=== PATIENT | female | born 1975 | race Caucasian/White ===

== ENCOUNTER 2022-01-08 09:03 | Observation (INO) | payer OTHER ==
[~2022-01-08] VITALS: Ht 170.2 cm; Wt 134.0 kg
[~2022-01-08 09:03] MED LIST: AMLODIPINE BESYL5 MG PO; DEPAKOTE ER500 MG PO; DEXAMETHASONE SOD PHOS INJ 4 MG/ML SDV ONE; FAMOTIDINE40 MG PO; FEROSUL325 MG PO; GEODON20 MG PO; GLYCOPYRROLATE INJ 0.2 MG/ML VIAL ONE; KETOROLAC TROMETHAMINE 30 MG/ML VIAL ONE; LIDOCAINE HCL 2% LOCAL INJ 5 ML SDV VIAL INJ ONE; NEOSTIGMINE 1 MG/ML 10ML VIAL ONE; ONDANSETRON HCL INJ 2MG/ML 2ML 2 MG/ML VIAL ONE; POVIDONE IODINE 0.05% 0.05 % ML PO ONE; PROPOFOL IV EMULSION 10 MG/ML 20 ML VIAL ONE; ROCURONIUM BROMIDE 10 MG/ML 5ML VIAL IV ONE; SEVOFLURANE INHAL SOLN 250 ML PEN BTL ONE; TRAZODONE HCL100 MG PO; VALIUM10 MG PO; VITAMIN B-121000 MCG PO
[2022-01-08 10:11] LABS: CLARITY,URINE SL CLOUDY (CLEAR); COLOR,URINE YELLOW (YELLOW); LEUKOCYTE ESTERASE ,URINE NEGATIVE (NEGATIVE); NITRITE,URINE NEGATIVE (NEGATIVE)
[2022-01-08 10:12] LABS: KETONES,URINE NEGATIVE (NEGATIVE); PROTEIN,URINE DIPSTICK NEGATIVE (NEGATIVE); URINE UROBILINOGEN 0.2 mg/dL (0.2 - 1)
[2022-01-08 10:30] LABS: BASOPHILS % 0.4 % (0.0-1.0); EOSINOPHILS # (AUTO) 0.4 (0.0-0.4); EOSINOPHILS % 4.1 % (0.0-6.0); LYMPHOCYTES # (AUTO) 3.4 (1.0-3.2); LYMPHOCYTES % 37.2 % (18.0-39.1); MEAN CORPUSCULAR HEMOGLOBIN 27.5 pg (28-32); MEAN CORPUSCULAR HGB CONC 31.4 g/dL (31-35); MEAN CORPUSCULAR VOLUME 87.5 fL (81-99); MONOCYTES # (AUTO) 0.6 (0.2-0.8); MONOCYTES % 6.6 % (4.4-11.3); NEUTROPHILS # (AUTO) 4.7 (2.1-6.9); NEUTROPHILS % 51.3 % (38.7-80.0); PLATELET COUNT 355 x10e3/uL (140-360); RED CELL DISTRIBUTION WIDTH 14.6 % (11.7-14.4)
[2022-01-08 10:51] LABS: ALANINE AMINOTRANSFERASE 18 IU/L (0-55); ALBUMIN 3.7 g/dL (3.5-5.0); ALBUMIN/GLOBULIN RATIO 0.9 (0.8-2.0); ALKALINE PHOSPHATASE 52 IU/L (40-150); ANION GAP 15.2 mmol/L (8-16); BLOOD UREA NITROGEN 9 mg/dL (7-26); BUN/CREATININE RATIO 13 (6-25); CALCIUM 8.5 mg/dL (8.4-10.2); CARBON DIOXIDE 24 mmol/L (22-29); CHLORIDE 104 mmol/L (98-107); CREATININE, SERUM 0.72 mg/dL (0.57-1.11); GLUCOSE 95 mg/dL (74-118); POTASSIUM 4.2 mmol/L (3.5-5.1); SODIUM 139 mmol/L (136-145)
[2022-01-08] MEDS ORDERED: BUPIVACAINE HCL 0.25% 10ML MPF VIAL INJ ONE (11:30)
[2022-01-08] MEDS ORDERED: ONDANSETRON HCL INJ 2MG/ML 2ML 2 MG/ML VIAL IV PRN (13:30)
[2022-01-08] MEDS ORDERED: KETOROLAC TROMETHAMINE 30 MG/ML VIAL IV PRN (13:30)
[2022-01-08] MEDS ORDERED: HYDROMORPHONE 1MG/1ML INJ IV PRN (13:30)
[2022-01-08] MEDS ORDERED: FENTANYL CITRATE/PF 100MCG/2 ML INJ ONE (14:11)
[2022-01-08 14:39] VITALS: BP 124/85
[2022-01-08 14:50] VITALS: BP 124/85
[2022-01-08 14:56] VITALS: BP 124/85
[2022-01-08] MEDS: SODIUM CHLORIDE 0.9% 1000ML 1,000 ML IV SCH ×2 (15:53→23:38)
[2022-01-08] MEDS ORDERED: DEPAKOTE DELAYED-RELEASE TAB 500 MG PO SCH (17:00)
[2022-01-08] MEDS ORDERED: ZIPRASIDONE 20 MG CAP PO SCH (17:00)
[2022-01-08] MEDS: HYDROCODONE/APAP 7.5MG-325MG 1 EA TAB PO PRN (18:45)
[2022-01-08 20:44] VITALS: BP 132/80
[2022-01-08] MEDS ORDERED: TRAZODONE HCL 50 MG TAB PO SCH (21:00)
[2022-01-08 22:17] VITALS: BP 132/80
[2022-01-09] MEDS: HYDROCODONE/APAP 7.5MG-325MG 1 EA TAB PO PRN ×2 (00:13→04:45)
[2022-01-09 01:34] VITALS: BP 127/76
[2022-01-09 05:04] VITALS: BP 128/84
[2022-01-09] MEDS ORDERED: CYANOCOBALAMIN 1,000 MCG TAB PO SCH (09:00)
[2022-01-09] MEDS ORDERED: AMLODIPINE BESYLATE 5 MG TAB PO SCH (09:00)
== END 2022-01-09 07:10 | disposition home or self-care (01) ==
LOC: OR 09:03 → PACU V 13:32 → MED/SURG 14:38 → UNDODISOB 17:55
PROVIDERS: ADMIT Surgery; ATTEND Surgery
DX: K80.10 Calculus of gallbladder with chronic cholecystitis without obstruction (principal); I10 Essential (primary) hypertension; Z20.822 Contact with and (suspected) exposure to COVID-19; Z01.818 Encounter for other preprocedural examination
CPT/HCPCS: 0223U; 36415; 47562; 80053; 81003; 81025; 85025; 88304; 93005; C1766; C9113; G0378 ×2; J1885; J2405; J3010; J7030; J1100; J2001; J2710